=== PATIENT | male | born 1990 | race Caucasian/White ===

== ENCOUNTER → 2022-01-26 | Outpatient (CLI) | payer OTHER ==
--- NOTE | 2022-01-26 16:53 | EEG ---
DATE OF SERVICE: 01/26/2022 ELECTROENCEPHALOGRAM REPORT EEG NUMBER: 12. OBJECTIVE: The patient is a 31-year-old male with possible new seizures. DESCRIPTION: This is a digital study. Electrodes are placed according to the international 10-20 system. Bipolar and referential montages are available. Activation procedures typically include hyperventilation and intermittent photic stimulation. INTERPRETATION: The waking background consists of 9-10 Hz, 50-100 microvolt activity, symmetrically distributed over parietooccipital regions and reactive to eye opening. There are occasional sharp waves with phase reversal at electrode F4. Stage 2 sleep was achieved with normal electroencephalogram patterns. Hyperventilation and intermittent photic stimulation are noncontributory. IMPRESSION: This electroencephalogram with the patient awake and asleep is abnormal because of an epileptic disturbance of cerebral activity arising from the right frontal region. Findings are consistent with epilepsy from this region. Thank you for letting us help with the patient's care. ANGELICA DR: Jacob TID: [id number] CC: Angela Altamirano NP, Starr Lantigua MD
== END ==
LOC: RT 08:39
PROVIDERS: ATTEND Psychiatry & Neurology Neurology with Special Qualifications in Child Neurology
DX: R56.9 Unspecified convulsions (principal)
CPT/HCPCS: 95816